=== PATIENT | male | born 1990 | race Two or more races ===

== ENCOUNTER 2018-12-03 16:29 | Emergency (ER) | payer SELFPAY ==
[~2018-12-03] VITALS: Ht 167.6 cm; Wt 84.1 kg
[2018-12-03 16:39] VITALS: Ht 167.6 cm; Wt 84.1 kg
[2018-12-03 17:39] VITALS: BP 131/82
== END 2018-12-03 17:40 | disposition home or self-care (01) ==
LOC: D.ER 16:29
DX: M79.18 Myalgia, other site (principal); F19.10 Other psychoactive substance abuse, uncomplicated

== ENCOUNTER 2018-12-03 17:58 | Emergency (ER) | payer SELFPAY ==
[~2018-12-03] VITALS: Ht 167.6 cm; Wt 84.1 kg
[2018-12-03 18:40] VITALS: BP 144/99; Ht 167.6 cm; Wt 84.1 kg
== END 2018-12-03 19:05 | disposition home or self-care (01) ==
LOC: D.ER 17:58
DX: M79.18 Myalgia, other site (principal); F19.10 Other psychoactive substance abuse, uncomplicated

== ENCOUNTER 2018-12-03 19:17 | Emergency (ER) | payer SELFPAY ==
[~2018-12-03] VITALS: Ht 167.6 cm; Wt 79.8 kg
[2018-12-03 19:41] VITALS: BP 154/90; Ht 167.6 cm; Wt 79.8 kg
[2018-12-03 20:31] LABS: BASOPHILS 0.4 % (0-2); EOSINOPHILS 0.7 % (0-7); HEMATOCRIT 45.2 % (42.0-54.0); HEMOGLOBIN 17.2 g/dL (13.5-17.5); IMMATURE GRANULOCYTES 0.3 % (0-5); LYMPHOCYTES 18.8 % (15-50); MCH 34.8 pg (26.0-34.0); MCHC 38.1 g/dL (31.0-37.0); MCV 91.5 fL (80.0-100.0); MONOCYTES 8.1 % (2-11); NEUTROPHILS 71.7 % (40-80); PLATELET COUNT 173 10x3/uL (130-400); RBC 4.94 10x6/uL (4.20-6.10); RDW 13.2 % (11.5-14.5); WBC 9.8 10x3/uL (4.8-10.8)
[2018-12-03 20:44] LABS: ALKALINE PHOSPHATASE 117 U/L (46-116); ALT (SGPT) 70 U/L (10-68); BILIRUBIN - TOTAL 0.84 mg/dL (0.2-1.3); CALC OSMOLALITY 277 mosm/kg (275-300); CALCIUM 9.2 mg/dL (8.5-10.1); CARBON DIOXIDE 21.4 mmol/L (21.0-32.0); CHLORIDE - SERUM 101 mmol/L (98-107); CREATININE - SERUM 0.8 mg/dL (0.6-1.3); GLUCOSE 119 mg/dL (74-106); PROTEIN - SERUM 9.1 g/dL (6.4-8.2); SODIUM 140 mmol/L (136-145); UREA NITROGEN 6 mg/dL (7-18); eGFR NON AFRICAN AMERICAN > 90 mL/min (90-120)
[2018-12-03 20:55] LABS: CKMB 0.6 U/L (0.0-3.6); CREATINE KINASE 219 UL (21-232); LIPASE 86 U/L (73-393); MAGNESIUM - SERUM 1.9 mg/dL (1.8-2.4)
[2018-12-03 21:07] LABS: TROPONIN-I < 0.017 ng/mL (0.000-0.060)
== END 2018-12-03 21:36 | disposition left against medical advice (07) ==
LOC: D.ER 19:17
PROVIDERS: Family Medicine
DX: E87.6 Hypokalemia (principal); M79.18 Myalgia, other site; F19.10 Other psychoactive substance abuse, uncomplicated

== ENCOUNTER 2020-02-29 19:40 | Emergency (ER) | payer SELFPAY ==
[~2020-02-29] VITALS: Ht 167.6 cm; Wt 75.0 kg
[2020-02-29 19:44] VITALS: Ht 167.6 cm; Wt 75.0 kg
[2020-02-29 20:13] LABS: BASOPHILS 0.4 % (0-2); EOSINOPHILS 1.5 % (0-7); IMMATURE GRANULOCYTES 0.2 % (0-5); LYMPHOCYTES 25.2 % (15-50); MCH 32.4 pg (26.0-34.0); MCHC 35.9 g/dL (31.0-37.0); MCV 90.3 fL (80.0-100.0); MEAN PLATELET VOLUME 9.8 fL (7.4-10.4); MONOCYTES 7.5 % (2-11); NEUTROPHILS 65.2 % (40-80); RBC 4.32 10x6/uL (4.20-6.10); RDW 14.5 % (11.5-14.5); WBC 5.2 10x3/uL (4.8-10.8)
[2020-02-29 20:19] LABS: PLATELET COUNT 51 10x3/uL (130-400)
[2020-02-29 20:32] LABS: CALC OSMOLALITY 283 mosm/kg (275-300); CALCIUM 7.6 mg/dL (8.5-10.1); CHLORIDE - SERUM 106 mmol/L (98-107); CREATININE - SERUM 0.8 mg/dL (0.6-1.3); GLUCOSE 136 mg/dL (74-106); POTASSIUM - SERUM 3.1 mmol/L (3.5-5.1); SODIUM 143 mmol/L (136-145); UREA NITROGEN 5 mg/dL (7-18); eGFR NON AFRICAN AMERICAN > 90 mL/min (90-120)
[2020-02-29 20:41] LABS: ALBUMIN 3.3 g/dL (3.4-5.0); ALKALINE PHOSPHATASE 193 U/L (30-120); ALT (SGPT) 93 U/L (10-68); BILIRUBIN - TOTAL 1.36 mg/dL (0.2-1.3); PROTEIN - SERUM 7.9 g/dL (6.4-8.2)
[2020-02-29 20:42] LABS: PLATELET ESTIMATE DECREASED
[2020-02-29 21:18] LABS: BILIRUBIN NEGATIVE (NEGATIVE); KETONE NEGATIVE (NEGATIVE); NITRITE NEGATIVE (NEGATIVE); UROBILINOGEN NORMAL (NORMAL)
[2020-02-29 21:30] LABS: UDS - AMPHET NEGATIVE QUAL (NEGATIVE); UDS - BARB NEGATIVE QUAL (NEGATIVE); UDS - BENZO NEGATIVE QUAL (NEGATIVE); UDS - COCAINE NEGATIVE QUAL (NEGATIVE); UDS - OPIATE NEGATIVE QUAL (NEGATIVE); UDS - PCP NEGATIVE QUAL (NEGATIVE); UDS - THC NEGATIVE QUAL (NEGATIVE)
[2020-03-01 01:11] VITALS: BP 132/89
== END 2020-03-01 01:12 | disposition home or self-care (01) ==
LOC: D.ER 19:40
PROVIDERS: Family Medicine
DX: F10.129 Alcohol abuse with intoxication, unspecified (principal); Y90.8 Blood alcohol level of 240 mg/100 ml or more; I51.7 Cardiomegaly; R74.8 Abnormal levels of other serum enzymes; E83.51 Hypocalcemia; E87.6 Hypokalemia; M54.2 Cervicalgia; D69.6 Thrombocytopenia, unspecified; R73.9 Hyperglycemia, unspecified